=== PATIENT | male | born 1965 | race Caucasian/White ===

== ENCOUNTER → 2018-11-27 16:38 | Outpatient (CLI) | payer MEDICARE, SELFPAY ==
--- NOTE | 2018-11-27 16:55 | RAD_ITS ---
STUDY: X-RAY - LUMBOSACRAL SPINE REASON FOR EXAM: Male, 53 years old. Low back pain. Sciatica. TECHNIQUE: 6 view(s) of the lumbosacral spine were obtained including oblique. COMPARISON: None FINDINGS: Normal lumbar lordosis. There is no substantial scoliosis. There is normal alignment of the vertebrae. There is mild endplate spondylosis of the lumbar vertebrae. Normal disc space heights. Normal bilateral sacral ala, sacroiliac joints, and visualized sacrum. Phleboliths are seen in the left hemipelvis. Scattered atherosclerotic plaques of the abdominal aorta. RAD/L/S Spine w Bend Min 6 Vw IMPRESSION: Degenerative changes of the spine, as detailed above. Electronically Signed: Sukumar Andrew, at 13:12 EST , Service support ,
== END ==
PROVIDERS: Family Provider Family Medicine; PCP Family Medicine; Referring Provider Anesthesiology; Visit Provider Anesthesiology
DX: M54.5 Low back pain (principal)
CPT/HCPCS: 72114

== ENCOUNTER 2018-12-05 13:30 | Outpatient (RCR) | payer MEDICARE, SELFPAY ==
--- NOTE | 2018-11-29 12:31 | HP.PTEVAL_ITS ---
Patient's Visit Information ADDIS ALLISON is a 53 year old M referred to Physical Therapy by Diana Naranjo MD with a diagnosis of CERVICAL DDD. Date of Evaluation: 11/29/18 Physical Therapist: Davin Stoll, PT, Cert MDT, OCS - Visit Plan Frequency: 2x /Week Duration: 4 Weeks Plan: H/O CERVICAL FUSION X2. US/MHP,ESTIM FOR PAIN PROGRESS TO GRADED CERVICAL POSTURAL EX'S - Subjective Findings: This 53 y/o male presents to physical therapy with cervical DDD. Patient h/o cervical fusion C5-7 2012,C6-7 1998. Most recently patient has developed progressive cervical pain. Patient seen DR Odom surgeon neuro,reviewed MRI showed C4 HNP not canditate for surgery. Recommended pain management plan epidural injection and gave Robaxin/mobic. Patient has NÚÑEZ/DIZZINESS denies tnnutis. Patient has difficulty sleeping at night. Patient parathesia/tingling in hands/ Pateint had PT prior to PT. Located cervical spine -occiput bilateral arms -deltoid. Patient has had epidural injections in past. Patient pain affects QOL and function/housework tasks. SOCIAL: . VOCATION: disablity - Pain Bilateral Neck Pain Intensity (Out of 10): 7 Pain Intensity Range: 10 Bilateral Shoulder Pain Intensity (Out of 10): 5 Pain Intensity Range: 10 - Objective POSTURE: mild foward posture. NEURO: c/o parathesia/tingling arms,light touch intact,reflexes C5-6-7 /. PALPATION: tender UT /LEVATER/paraspinal. AROM: BUE AROM WFL. MMT: grossly 4/5,shoulder 4-/5. CERVICAL ROM: flexion min ,lateral/flexion ,rotation min/mod loss,extension min/mod loss - Special Tests C/S Radiculapathy - Left Upper limb tension test: Negative C/S Radiculapathy - Right Upper limb tension test: Negative Sharp Dayami: Negative Vertebral Artery Test: Negative Alar Ligament Test: Negative - Goals Goal 1:: Independant with HEP Goal Time Frame: 4-6 Weeks Goal 2:: Independant with posture for ADL's Goal Time Frame: 4-6 Weeks Goal 3:: Decrease cervical pain by 50% or greater to improve function and ADL'S Goal Time Frame: 4-6 Weeks Goal 4:: Patient cervical AROM for function of recovery Goal Time Frame: 4-6 Weeks Goal 5:: Patient improve MIGUEL cervical score by 5 points to improve QOL. Goal Time Frame: 4-6 Weeks - Rehabilitation Potential Physical Therapy Diagnosis: This patient has cervical pain with radicular symptoms with h/o cervical fusion 1998 and 2012 with pain ,NÚÑEZ ,decrease strength,decrease cervical ROM impairs ADL'S and function Rehabilitation Potential: Good - Anticipated Interventions Patient/Client Instruction: Educate patient on: Condition, Plan of Care For the Purpose of:: To decrease pain, To increase ROM, To improve muscle performance and motor function, To improve ability to perform ADL's, To increase tolerance to activity/condition/position, To improve performance and independence with ADL's, To improve ability of physical actions for home/community/work/leisure, To improve health of tissue, To decrease soft tis kim restriction, To improve ability to perform tasks related to life management Therapeutic Exercise to Include: Strength training, Postural training, Flexibilty training, Active ROM For the Purpose of:: To decrease pain, To increase ROM, To improve muscle performance and motor function, To increase tolerance to activity/condition/position, To improve performance and independence with ADL's, To improve ability of physical actions for home/community/work/leisure, To improve health of tissue, To decrease soft tissue restriction, To improve abilit y to perform tasks related to life management TENS: Yes IF ES: Yes Thermo therapy (hot pack): Yes Ultrasound (thermal/non thermal): Yes For the Purpose of:: To decrease pain, To increase ROM, To improve health of tissue, To decrease soft tissue restriction Thank you for the opportunity to evaluate your patient. For Medicare and Medicare HMO plans, please review the plan of care and approve it. It will need to be FAXED BACK to us at [phone] for Medicare purposes. For Medicare only, by signing this I certify the plan of care. Please let me know if there are questions or concerns regarding this plan of care. Physician Signature: Date:
--- NOTE | 2018-12-22 13:03 | HP.PTDCNRP_ITS ---
HP - Discharge Summary (1) - Patient Information ADDIS ALLISON was seen in my office for initial evaluation on 11/29/18. The following Plan of Care was established for this patient: Initial Frequency: 2x /Week Initial Duration: 4 Weeks - Anticipated Interventions Patient/Client Instruction: Educate patient on: Condition, Plan of Care For the Purpose of:: To decrease pain, To increase ROM, To improve muscle perf ormance and motor function, To improve ability to perform ADL's, To increase tolerance to activity/condition/position, To improve performance and independence with ADL's, To improve ability of physical actions for home/community/work/leisure, To improve health of tissue, To decrease soft tissue restriction, To improve ability to perform tasks related to life management Therapeutic Exercise to Include: Strength training, Postural training, Flexibilty training, Active ROM For the Purpose of:: To decrease pain, To increase ROM, To improve muscle p erformance and motor function, To increase tolerance to activity/condition/position, To improve performance and independence with ADL's, To improve ability of physical actions for home/community/work/leisure, To improve health of tissue, To decrease soft tissue restriction, To improve ability to perform tasks related to life management TENS: Yes IF ES: Yes Thermo therapy (hot pack): Yes Ultrasound (thermal/non thermal): Yes For the Purpose of:: To decrease pain, To increase ROM, To improve health of tissue, To decrease soft tissue restriction This patient was last seen in our office . Pertinent comments regarding their Physical therapy will appear below: Patient seen for PT for cervicall DDD tx focusing on modalities and cervical/postural ex. Patient had injection which helped to decrease symptoms thus better At this point I will be discontinuing this patient from physical therapy. I would be happy to see this patient again in the future if found appropriate by the physician. Thank you! Davin Stoll, PT, Cert MDT, OCS
== END 2018-12-05 19:00 | disposition home or self-care (01) ==
LOC: PT 13:30
PROVIDERS: Family Provider Family Medicine; PCP Family Medicine; Referring Provider Anesthesiology; Visit Provider Anesthesiology
DX: M50.30 Other cervical disc degeneration, unspecified cervical region (principal)
CPT/HCPCS: 97035; 97110; 97162